=== PATIENT | male | born 1975 | race Caucasian/White ===

== ENCOUNTER 2016-07-29 16:00 | Inpatient (IN) | payer OTHER ==
--- NOTE | ~2016-07-29 | CO ---
Unit #: [id number] #: [id number] Patient: MELY SHELL [id number] [facility] [address] [place] [address] [id number] MR#: [id number] NAME: MELY SHELL ROOM: P208 Age: 40 Sex: M Admission Date: 07/30/2016 : 1975 Attending Physician: Cale Astorga M.D. Primary Care Physician: Callie Estrada M.D. Consultation Date: 07/30/2016 CONSULTATION REPORT SUBJECTIVE Mely is a 40-year-old who sustained a laceration to his right great toe many days prior to his admission. We have been asked to assess and give recommendations. OBJECTIVE GENERAL: Alert, well nourished, in no apparent distress. VITAL SIGNS: Blood pressure 120/72, heart rate 80, respirations 16, temperature 98.6. EXTREMITIES: Right great toe, small laceration along the edge. The area has scabbed over. There is no increased redness, swelling, heat, or pus noted. ASSESSMENT Laceration sustained prior to admission. PLAN Keep it clean with soap and water. Dictated by... Rola Hussein P.A.-C. for Matteo Kay/nadya TD: 08/11/2016 23:24 JOB #: [id number] CONSULTATION REPORT Page 1 of 1 X Rola Hussein CONSULTATION REPORT
--- NOTE | ~2016-07-29 | PN ---
Unit #: [id number] #: [id number] Patient: MELY SHELL [id number] [facility] [address] [place] [address] [id number] I MR#: [id number] NAME: MELY SHELL ROOM: P208 Age: 40 Sex: M Admission Date: 07/30/2016 : 1975 Attending Physician: Cale Astorga M.D. Admitting Physician: Cale Astorga M.D. Primary Care Physician: Matteo Quiroz PROGRESS NOTES DATE 08/01/2016 DISCUSSION The patient is abed today and continues to complain of discomfort related to his withdrawal. I will increase the frequency of his Neurontin to q 4 hours in hopes of alleviating some of physical distress related to his opioid withdrawal. Dictated by... Cale Astorga M.D. CB/carolee TD: 08/02/2016 01:19 JOB #: [id number] [facility] PROGRESS NOTES Page 1 of 1 X Cale Astorga MD X PROGRESS NOTE
--- NOTE | ~2016-07-29 | PA ---
Unit #: [id number] #: [id number] Patient: MELY SHELL [id number] [place] [address] [id number] I MR#: [id number] NAME: MELY SHELL ROOM: P208 Age: 40 Sex: M Admission Date: 07/30/2016 : 1975 Date of Assessment: 07/30/2016 Attending Physician: Cale Astorga M.D. Admitting Physician: Cale Astorga M.D. Primary Care Physician: Callie Estrada M.D. PSYCHIATRIC ASSESSMENT IDENTIFYING INFORMATION The patient is a 40-year-old white male admitted with recurrent abuse of methamphetamine and heroin. CHIEF COMPLAINT "The same thing." INFORMANT(S) Patient, reliability is good. HISTORY OF PRESENT ILLNESS The patient is a 40-year-old white male with a history of opioid dependence as well as abuse of methamphetamine. He was last admitted to this facility in 2014 and returns with recurrent abuse. He also states he has been using illicitly obtained alprazolam. The patient reports that he maintained sobriety for a year upon his last discharge from this facility, completing the [facility] program, but upon leaving he relapsed shortly thereafter. He is currently reporting significant symptoms of opioid withdrawal. He is denying suicidal ideation, recent changes in mood, sleep, or appetite. He is currently on no prescribed home medications. PAST PSYCHIATRIC HISTORY As noted previously, the patient was hospitalized at this facility in 2014. PAST MEDICAL HISTORY Noncontributory. MEDICATIONS None. ALLERGIES None. FAMILY HISTORY Noncontributory. SOCIAL HISTORY The patient is currently homeless but hopes to return to the home he shares with his girlfriend and their [id number] child. He reports that he is employed. He reports substance use as noted previously. MENTAL STATUS EXAMINATION Examination at this time reveals the patient to be an obese, heavily tattooed white male appearing stated age. She is in significant physical Unit #: [id number] #: [id number] Patient: MELY SHELL distress during interview. He is awake, alert, and oriented in all spheres. His mood is mildly dysphoric, his affect constricted. Speech is generally well coherent. There are no gross deficits in memory or cognition noted. Intelligence is judged to be in the average range based on fund of knowledge. The patient is cooperative throughout the interview. He is currently denying suicidal or homicidal ideation or psychotic features. Judgment and insight appear to be intact. ASSETS AND LIABILITIES The patient's assets: Motivation for change. Liabilities: Lack of resources. DIAGNOSTIC IMPRESSION 1. Opioid use disorder. 2. Sedative hypnotic use disorder. 3. Methamphetamine use disorder. TREATMENT PLAN The patient remains hospitalized for safety and stabilization. Routine detoxification protocol to cover both opioids and sedative hypnotics has been initiated. The patient will participate in appropriate order of milieu activities. ESTIMATED LENGTH OF STAY 5 to 7 days. Dictated by... Cale Astorga M.D. Teresa TD: 07/30/2016 14:25 JOB #: [id number] PSYCHIATRIC ASSESSMENT Page 1 of 1 X Cale Astorga MD X PSYCHIATRIC ASSESSMENT
--- NOTE | ~2016-07-29 | DS ---
Unit #: [id number] #: [id number] Patient: MELY SHLEL [id number] [facility] [address] [place] [address] [id number] I MR#: [id number] NAME: MELY SHELL ROOM: P208 Age: 40 Sex: M Admission Date: 07/30/2016 : 1975 Discharge Date: 08/02/2016 Attending Physician: Clae Astorga M.D. Primary Care Physician: Callie Estrada M.D. DISCHARGE SUMMARY JOB NOTE: ADDENDUM ADDENDUM The patient's discharge diagnosis should include a diagnosis of dysthymic disorder characterized by sad mood and hopelessness related to his ongoing abuse of psychoactive substances and his resultant life's circumstances. Dictated by... Cale Astorga M.D. CB/joanal TD: 08/03/2016 00:03 JOB #: [id number] DISCHARGE SUMMARY Page 1 of 1 X Cale Astorga MD X DISCHARGE SUMMARY
--- NOTE | ~2016-07-29 | PN ---
Unit #: [id number] #: [id number] Patient: MELY SHELL [id number] [facility] [address] [place] [address] [id number] I MR#: [id number] NAME: MELY SHELL ROOM: P208 Age: 40 Sex: M Admission Date: 07/30/2016 : 1975 Attending Physician: Cale Astorga M.D. Admitting Physician: Cale Astorga M.D. Primary Care Physician: Matteo Quiroz PROGRESS NOTES DATE 07/31/2016 DISCUSSION The patient is abed today. He continues to complain of severe symptoms of opioid withdrawal but slept better with initiation of p.r.n. trazodone. He is expressing interest in initiation of naltrexone injection, and we will consider this once he is discharged and begins treatment in the intensive outpatient program. Dictated by... Cale Astorga M.D. CB/bzg TD: 07/31/2016 13:10 JOB #: [id number] [facility] PROGRESS NOTES Page 1 of 1 X Cale Astorga MD X PROGRESS NOTE
--- NOTE | ~2016-07-29 | DS ---
Unit #: [id number] #: [id number] Patient: MELY SHELL [id number] [facility] [address] [place] [address] [id number] MR#: [id number] NAME: MELY SHELL ROOM: P208 Age: 40 Sex: M Admission Date: 07/30/2016 : 1975 Discharge Date: 08/02/2016 Attending Physician: Cale Astorga M.D. Primary Care Physician: Callie Estrada M.D. DISCHARGE SUMMARY REASON FOR ADMISSION The patient is a 40-year-old white male, admitted to the [address] [place] [address] for heroin and methamphetamine abuse as well as sedative hypnotic abuse. HOSPITAL COURSE The patient was admitted to the [address] [place] [address] unit and placed on routine detoxification protocol for opioids and sedative hypnotics. He complained of significant symptoms of opioid withdrawal and on couple of occasions threatened to leave "because he was hurting so bad," but he remained in the hospital until 08/02/2016, at which point, his detox symptoms had essentially cleared and discharge was ordered. FINAL DIAGNOSES Opioid use disorder, methamphetamine use disorder, sedative hypnotic use disorder, morbid obesity. DISPOSITION ON DISCHARGE The patient is discharged on no psychotropic or other medications. FOLLOWUP Followup will take place through the auspices of the intensive outpatient program provided by this facility. PROGNOSIS The patient's prognosis is considered fair. Dictated by... Cale Astorga M.D. CB/nadya TD: 08/03/2016 02:19 JOB #: [id number] Unit #: [id number] #: [id number] Patient: MELY SHELL DISCHARGE SUMMARY Page 1 of 1 X Cale Astorga MD X DISCHARGE SUMMARY
--- NOTE | ~2016-07-29 | HP ---
Unit #: [id number] #: [id number] Patient: MELY SHELL [id number] [facility] [address] [place] [address] [id number] MR#: [id number] NAME: MELY SHELL ROOM: P208 Age: 40 Sex: M Admission Date: 07/30/2016 : 1975 Attending Physician: Cale Astorga M.D. Admitting Physician: Cale Astorga M.D. Primary Care Physician: Callie Estrada M.D. HISTORY AND PHYSICAL HISTORY OF PRESENT ILLNESS Mely is a 40 year old admitted to [address] [place] [address] because of his drug use. He shoots heroin. PAST MEDICAL HISTORY 1. Long history of illicit substance abuse to include methamphetamine and IV heroin. 2. History of benzodiazepine abuse. PAST SURGICAL HISTORY Nothing reported. ALLERGIES No known drug allergies. SOCIAL HISTORY Smokes 1 pack per day. Drinks alcohol on occasion. Admits to a long history of polysubstance abuse to include IV heroin and benzodiazepines. FAMILY HISTORY Medically noncontributory. REVIEW OF SYSTEMS CONSTITUTIONAL: No fever or chills. HEENT: Denies any sore throat, ear pain or runny nose. CARDIOVASCULAR: Denies chest pain, irregular heart rhythm or palpitations. CHEST: Denies shortness of breath or cough. No hemoptysis. GASTROINTESTINAL: Denies nausea, vomiting, diarrhea or chronic constipation. ENDOCRINE: Denies history of increased thirst or urination. No recent significant weight loss or gain. GENITOURINARY: Denies dysuria, frequency, or hematuria. SKIN: Denies any rashes. HEMATOLOGIC: Denies history of increased bleeding or bruising. MUSCULOSKELETAL: Denies any hot, swollen joints. No generalized muscle pain. NEUROLOGIC: Denies problems with vision or speech. No frequent, severe headaches. No numbness, tingling or weakness in any extremities. Denies loss of bladder or bowel control. CURRENT MEDICATIONS Detox protocol. Unit #: [id number] #: [id number] Patient: MELY SHELL PHYSICAL EXAMINATION GENERAL: Alert, well-nourished, in no apparent distress. VITAL SIGNS: Blood pressure 128/84, heart rate 68, respirations 16, temperature 98.6. WEIGHT: 250. HEIGHT: 6 feet 4 inches. SKIN: Warm and dry without rash or lesion. HEENT: Normocephalic. TMs not viewed. Oral and nasal passages clear. Conjunctivae clear. PERRLA. EOMs intact. NECK: Supple without lymphadenopathy or thyromegaly. HEART: Regular rate and rhythm without murmur. LUNGS: Clear. ABDOMEN: Soft, nontender. : Not done. EXTREMITIES: No evidence of cyanosis, clubbing or edema. Moves all without focal deficit. NEUROLOGICAL: Grossly within normal limits. Cranial Nerves: II: Visual wong are intact. III, IV AND : Extraocular movements are intact. Pupils are equal, round and reactive to light. V: Facial sensation is grossly normal. VII: Facial movements and expression are normal. VIII: Auditory acuity grossly intact. IX, X: Uvula is midline. Phonation is normal. XI: Patient shrugs shoulders and turns head normally. XII: Tongue protrudes in the midline. Sensory and Motor Function: Sensory and motor sensation is grossly normal. Motor: moves all extremities well. Coordination: Gait is normal. Deep Tendon Reflexes: Intact. IMPRESSION Psychiatric admission. RECOMMENDATIONS PSYCHIATRIC: Per psychiatrist. MEDICAL: See no contraindications to participate in facility's activities. MEDICAL PROGNOSIS Good. MEDICAL CONDITION Stable. Dictated by... Rola Hussein PNoelANirmal. for Matteo Kay/chloe TD: 07/30/2016 20:51 JOB #: [id number] Unit #: [id number] #: [id number] Patient: MELY SHELL HISTORY AND PHYSICAL Page 1 of 1 X Rola Hussein HISTORY AND PHYSICAL
[2016-07-30 09:46] LABS: URINE APPEARANCE CLEAR; URINE BILIRUBIN NEG (NEG); URINE BLOOD NEG (NEG); URINE COLOR YELLOW; URINE GLUCOSE NEG (NEG); URINE KETONE NEG (NEG); URINE LEUKOCYTE ESTERASE NEG (NEG); URINE NITRATE NEG (NEG); URINE PROTEIN NEG (NEG); URINE SPECIFIC GRAVITY 1.016 (1.003-1.035)
[2016-07-30 10:59] LABS: AMPHETAMINE POS (NEG); BARBITURATES NEG (NEG); BENZODIAZEPINES NEG (NEG); COCAINE NEG (NEG); MARIJUANA POS (NEG); OPIATES POS (NEG); TRICYCLIC ANTIDEPRESSANTS NEG (NEG); U METHADONE NEG (NEG)
== END 2016-08-02 14:00 | DRG 897 ==
LOC: P1E 18:53 → UNDOADMIN 18:53 → P2S 07-30 01:27
PROVIDERS: Psychiatry & Neurology Psychiatry
PROC: HZ2ZZZZ Detoxification Services for Substance Abuse Treatment (ICD-10-PCS; principal; 2016-07-30)
DX: F11.10 Opioid abuse, uncomplicated (principal); E66.01 Morbid (severe) obesity due to excess calories; F13.10 Sedative, hypnotic or anxiolytic abuse, uncomplicated; F15.10 Other stimulant abuse, uncomplicated; F17.210 Nicotine dependence, cigarettes, uncomplicated; Z68.30 Body mass index [BMI] 30.0-30.9, adult
CPT/HCPCS: 80307; 81003